=== PATIENT | male | born 1990 | race Caucasian/White ===

== ENCOUNTER 2021-04-30 06:05 | Day surgery (SDC) | payer OTHER ==
[2021-04-30] VITALS (8 sets, daily range): BP systolic 144–165; BP diastolic 79–100
[~2021-04-30] VITALS: Ht 198.1 cm; Wt 130.0 kg
[~2021-04-30 06:05] MED LIST: NO HOME MEDS; ceFAZolin inj. 3,000 MG in normal saline 100ml IV soln 100 ML IV ONE; famotidine 20mg tablet PO ONE; ringers solution, lacted 1,000 ML IV SCH; vancomycin 1,500 MG in NS 300ml IV soln IV ONE
[2021-04-30] MEDS ORDERED: midazolam 1 mg/ML 2ml injection ONE (07:22)
[2021-04-30] MEDS ORDERED: fentaNYL/PF 50MCG/1 ML 2ML syringe ONE ×2 (07:22→08:09)
[2021-04-30] MEDS ORDERED: cloNIDine hcl/PF 100mcg/ml inj ONE (07:26)
[2021-04-30] MEDS ORDERED: sevoflurane 250ml liquid IH ONE (07:27)
[2021-04-30] MEDS ORDERED: ondansetron/PF 4mg/2ml inj ONE (07:27)
[2021-04-30] MEDS ORDERED: ROPIVAcaine 0.5% (5mg/ml) 30ml vial ONE (07:37)
[2021-04-30] MEDS ORDERED: propofol inj 20 ML IV ONE (08:04)
[2021-04-30] MEDS ORDERED: dexamethasone sod phosphate 4mg/ml inj. ONE (08:05)
[2021-04-30] MEDS ORDERED: morphine 4 MG/ML inj SYRINge IV PRN (08:20)
[2021-04-30] MEDS ORDERED: morphine 2 MG/ML inj. syringe IV PRN (08:20)
[2021-04-30] MEDS ORDERED: ringers solution, lacted 1,000 ML IV SCH (08:20)
[2021-04-30] MEDS ORDERED: meperidine/PF 25mg/ml syringe IV PRN ×3 (08:20)
[2021-04-30] MEDS ORDERED: ondansetron/PF 4mg/2ml inj IV PRN (08:20)
[2021-04-30] MEDS ORDERED: proCHLORperazine 10 MG/2 ml inj IV PRN (08:20)
--- NOTE | 2021-04-30 09:15 | NUR ---
Received from OR via , accompanied by Anesthesiologist DR JARVIS and report given by Anesthesiolgist. PT PRESENT SWITH 20G LEFT AC, RIGHT KNEE DRESSING DRY AND INTACT WITH BRACE. VSS. Addendum: 04/30/21 at 0946 by Harmony Brown RN, RN Amended: Links added.
--- NOTE | 2021-04-30 10:05 | NUR ---
PATIENT WAKING UP, NO S/S OF PAIN, V/S WNL, DC INSTRUCITONS REVIEWED WITH OFFICER SUZANNE AND OFFICER PATRICE. PT TRANSPORTED BACK TO [facility] WITH OFFEICERS.. Addendum: 04/30/21 at 1020 by Harmony Brown RN, RN Amended: Links added.
== END 2021-04-30 10:05 | disposition home or self-care (01) ==
LOC: PAS 06:05 → EEVIPCON 08:30 → PAS 10:05
PROVIDERS: ATTEND Orthopaedic Surgery
DX: S83.511A Sprain of anterior cruciate ligament of right knee, initial encounter (principal); G89.18 Other acute postprocedural pain; Z79.899 Other long term (current) drug therapy; Z20.822 Contact with and (suspected) exposure to COVID-19; Z88.8 Allergy status to other drugs, medicaments and biological substances; X58.XXXA Exposure to other specified factors, initial encounter; Y93.89 Activity, other specified; Y92.89 Other specified places as the place of occurrence of the external cause; Y99.8 Other external cause status
CPT/HCPCS: 29888; 64447; 76942; 82948; 87635; C1713; C1762; C9803; J0690; J0735; J1100; J2175; J2250; J2405; J2704; J3010; J3370; J7040; L1832; Z7506; Z7508; Z7512; A4215; A4618; A6449; A7000; J2795; J7120